=== PATIENT | female | born 1960 ===

== ENCOUNTER 2019-07-07 16:00 | Outpatient (CLI) | payer BC ==
--- NOTE | 2019-07-07 16:32 | MMO ---
Bilateral MAMMO Bilat Screen [facility]. CLINICAL HISTORY: Patient is 58 years old and is seen for screening. The patient has no family history of breast cancer. The patient has no personal history of cancer. VIEWS: The views performed were: bilateral craniocaudal with tomosynthesis and bilateral mediolateral oblique with tomosynthesis. FILMS COMPARED: The present examination has been compared to prior imaging studies performed at [facility] on 08/22/2004, and at [facility] on 06/06/1998 and 06/01/2000. This study has been interpreted with the assistance of computer-aided detection. MAMMOGRAM FINDINGS: There are scattered fibroglandular densities. There are no suspicious masses, suspicious calcifications, or new areas of architectural distortion. IMPRESSION: THERE IS NO MAMMOGRAPHIC EVIDENCE OF MALIGNANCY. A ROUTINE FOLLOW-UP MAMMOGRAM IN 1 YEAR IS RECOMMENDED. THE RESULTS OF THIS EXAM WERE SENT TO THE PATIENT. ACR BI-RADS Category 1 - Negative MAMMOGRAPHY NOTE: 1. A negative mammogram report should not delay a biopsy if a dominant of clinically suspicious mass is present. 2. Approximately 10% to 15% of breast cancers are not detected by mammography. 3. Adenosis and dense breasts may obscure an underlying neoplasm. Reported by: KALA FIERRO MD Electonically Signed: [id number]
== END 2019-07-07 16:01 | disposition home or self-care (01) ==
LOC: BICMAMMO 16:00
PROVIDERS: ATTEND Physician Assistant Medical
DX: Z12.31 Encounter for screening mammogram for malignant neoplasm of breast (principal)
CPT/HCPCS: 77063; 77067

== ENCOUNTER 2020-04-01 12:00 | Outpatient (CLI) | payer BC ==
--- NOTE | 2020-04-01 16:05 | RAD ---
LUMBAR SPINE 2 VIEWS: DATE: 04/01/2020. COMPARISON: None. History Low back pain for 2 months radiating into bilateral lower extremities. FINDINGS: Five lumbar-type vertebral bodies are present with intact pedicles on frontal imaging. There is prom inent lower lumbar spine facet hypertrophy on the left at L4-5 and bilaterally at L5-S1. Anterolisth esis is noted at L4-5 measuring 8 mm. Anterolisthesis of L5 on S1 measures 6 mm. No acute fracture. IMPRESSION: Lower lumbar spine facet hypertrophy with anterolisthesis at L4-5 and L5-S1. No acute osseous abnorm ality. POS: [facility]
== END 2020-04-01 12:01 | disposition home or self-care (01) ==
LOC: BICRAD 12:00
PROVIDERS: ATTEND Specialist
DX: M54.5 Low back pain (principal); M43.16 Spondylolisthesis, lumbar region; M43.17 Spondylolisthesis, lumbosacral region
CPT/HCPCS: 72100